=== PATIENT | female | born 2000 | race Caucasian/White ===

== ENCOUNTER 2022-03-23 13:33 | Outpatient (CLI) | payer MEDICAID, SELFPAY | END 2022-03-23 13:34 | disposition home or self-care (01) | LOC: AMB 03-28 10:26 | PROVIDERS: Visit Provider Family Medicine | DX: S99.912A Unspecified injury of left ankle, initial encounter (principal); W00.0XXA Fall on same level due to ice and snow, initial encounter; Y92.328 Other athletic field as the place of occurrence of the external cause | CPT/HCPCS: A0425; A0429 ==

== ENCOUNTER 2022-03-23 14:19 | Emergency (ER) | payer MEDICAID, SELFPAY ==
[2022-03-23 14:23] VITALS: BP 163/109; PULSE 100; RESP 20; TEMP 37.2; O2SAT 97; BMI 37.8
--- NOTE | 2022-03-23 14:24 | ED.LOWEXIN ---
HPI - Extremity Injury (Lower) General Time Seen by Provider: 14:24 Date Seen: 03/23/22 Chief Complaint: Extremity Pain/Injury, Lower Stated Complaint: ankle injury Time Seen by Provider: 03/23/22 14:20 Source: patient and RN notes reviewed Limitations: no limitations History of Present Illness HPI Narrative: Patient is a 21-year-old female brought in by EMS from [place] the [place] [employer] [place] where she was attending [employer] game. She twisted her ankle on a manhole cover near the football field. She states she heard something that maybe was a crack or popping type sensation within the ankle. She could not walk comfortably back to her friend's car, could not walk on this. EMS was subsequently called. She is painful in the ankle area but no where else. There was no other injury. She is tearful, anxious about being here, states she does not like being in the hospital or being with the doctor. I tried to reassure her and make her more comfortable here. She has not taken any Tylenol or ibuprofen, stage she would really does not like taking medications. She does agree to some ice on the ankle. She is actually is a [employer] student. Related Data Home Medications Medication Instructions Recorded Confirmed No Known Home Medications 03/23/22 03/23/22 Allergies Allergy/AdvReac Type Severity Reaction Status Date / Time No Known Drug Allergies Allergy Verified 03/23/22 14:23 Review of Systems Narrative: As per HPI PFSH PFS Social History Smoking Status: Never smoker Do you use any of these nicotine containing products: None How often do you have a drink containing alcohol: never AUDIT-C Alcohol total score: 0 Non-prescribed substance use: denies use Exam Const: Vital Signs, click to edit/add: Vital Signs - 24 hr 03/23/22 14:23 Temperature 98.9 F Pulse Rate [Right Pulse Oximeter] 100 Respiratory Rate 20 Blood Pressure [Ri ght Upper Arm] 163/109 H Pulse Oximetry 97 Oxygen Delivery Me thod Room Air Common normals: no apparent distress (But is tearful, mildly anxious), oriented x3, no limitations, healthy appearing, alert and well nourished Extremity: Other: Her tennis shoe and sock were carefully removed from her left foot. She has no pain through hip down through the extremity until the ankle. She complains of some tenderness over both malleoli. I do not appreciate any joint effusion. Metatarsals are nontender, no midfoot tenderness on clinical examination. She has good pulses in this foot, warmth in coloration are normal in the toes. She can wiggle the toes without any difficulty. We did not mobilize her ankle on examination as she is clinically quite tender. Neuro: Common normals: oriented x3 Sensorium/orientation: alert Course Course Hospital Course: Had apply ice to this ankle, obtain left ankle imaging with x-ray. Vital Signs Vital signs: Initial Vital Signs Temperature 98.9 F 03/23/22 14:23 Temperature Source Temporal Artery Scan 03/23/22 14:23 Pulse Rate 100 03/23/22 14:23 Respiratory Rate 20 03/23/22 14:23 Blood Pressure 163/109 H 03/23/22 14:23 Blood Pressure Mean 127 03/23/22 14:23 Blood Pressure Position Sitting 03/23/22 14:23 Pulse Oximetry 97 03/23/22 14:23 Oxygen Delivery Method 03/23/22 14:23 Vital Signs Temperature 98.9 F 03/23/22 14:23 Pulse Rate 100 03/23/22 14:23 Respiratory Rate 20 03/23/22 14:23 Blood Pressure 163/109 H 03/23/22 14:23 Pulse Oximetry 97 03/23/22 14:23 Oxygen Delivery Method 03/23/22 14:23 Temperature 98.9 F 03/23/22 14:23 Pulse Rate 100 03/23/22 14:23 Respiratory Rate 20 03/23/22 14:23 Blood Pressure 163/109 H 03/23/22 14:23 Pulse Oximetry 97 03/23/22 14:23 Oxygen Delivery Method 03/23/22 14:23 MDM - Extremity Injury (Lower) Imaging Data X-ray left ankle: Attestation: I have reviewed the pertinent imaging results. My impression: My preliminary review of this ankle x-ray is without fracture, wait radiology over-read. Radiologist's impression: Patient: CEE ASH Facility:?[facility] Patient ID:?[id number] Site Patient ID:?[id number]. Site :?[id number] Study:?XRay Extremity Left ANKLE-03/23/2022 2:51:20 PM Ordering Physician:Jin Sharp Final Report: Indication: Twisted ankle Technique: Three views left ankle Comparison: No comparison Findings: Normal alignment. No fractures. No acute osseous abnormalities soft tissue swelling. Dictated by Terese Haddad MD @ 03/23/2022 3:24:05 PM (Electronic Signature) Critical Care Time Critical Care Time Critical Care Time: No Discharge Plan Discharge Clinical Impression: Left ankle sprain Qualifiers: Encounter type: initial encounter Involved ligament of ankle: unspecified ligament Qualified Code(s): S93.402A - Sprain of unspecified ligament of left ankle, initial encounter Patient Disposition: Home, Self-Care Condition: Stable Instructions: Ankle Sprain (ED), Ankle Stirrup Splint (ED) Additional Instructions: Ice, elevate this ankle is much is you are able to do for the next few days. Would have you consider trying Tylenol and or ibuprofen alternating if needed for pain control, follow bottle directions for dosing. Use splint as needed for comfort with walking, can transition out of this as soon as you are able to. If her pain is not improving over the next 1-2 weeks, do recommend follow-up in clinic. Activity Level: Activity as Tolerated Prescriptions: No Action No Known Home Medications Stand Alone Forms: [email or web address] Info Instructions
--- NOTE | 2022-03-23 14:31 | CRLHL7_ITS ---
For Patients: As a result of the Cures Act, medical imaging exams and procedure reports are released immediately into your electronic medical record. You may view this report before your referring provider. If you have questions, please contact your health care provider. Indication: Twisted ankle Technique: Three views left ankle Comparison: No comparison Findings: Normal alignment. No fractures. No acute osseous abnormalities soft tissue swelling. Dictated by Terese Haddad MD @ 03/23/2022 3:24:05 PM (Electronically Signed)
[2022-03-23 15:57] VITALS: BP 163/109; PULSE 100; RESP 20; TEMP 37.2
== END 2022-03-23 15:59 | disposition home or self-care (01) ==
PROVIDERS: Emergency Provider Family Medicine
DX: S93.402A Sprain of unspecified ligament of left ankle, initial encounter (principal); X50.1XXA Overexertion from prolonged static or awkward postures, initial encounter
CPT/HCPCS: 73610; 99283